=== PATIENT | female | born 1980 | race Hispanic/Latino ===

== ENCOUNTER 2017-07-26 05:42 | Day surgery (SDC) | payer MEDICAID ==
[~2017-07-26] VITALS: Ht 157.5 cm; Wt 65.7 kg
[~2017-07-26 05:42] MED LIST: ENAL5TAB PO; ERGO2000 PO; HYDR25TA PO
[2017-07-26 05:46] VITALS: BP 123/81
[2017-07-26] MEDS ORDERED: SODIUM CHLORIDE 0.9% 1000ML 1,000 ML IV ONE (06:03)
[2017-07-26 09:15] VITALS: BP 125/73
== END 2017-07-26 09:50 | disposition home or self-care (01) ==
LOC: ENDO 05:42 → DAH 05:42 → ENDO 09:50
PROVIDERS: ATTEND Internal Medicine
DX: K29.50 Unspecified chronic gastritis without bleeding (principal); L53.8 Other specified erythematous conditions; I10 Essential (primary) hypertension; Z85.3 Personal history of malignant neoplasm of breast; Z79.899 Other long term (current) drug therapy; E66.9 Obesity, unspecified; Z68.28 Body mass index [BMI] 28.0-28.9, adult
CPT/HCPCS: 36415; 43239; 84703; 88305; 88312; 88342; A4606; J7030

== ENCOUNTER 2017-09-08 18:45 | Emergency (ER) | payer MEDICAID | END 2017-09-08 19:23 | disposition home or self-care (01) | LOC: EDH 18:45 | DX: R21 Rash and other nonspecific skin eruption (principal); Z85.3 Personal history of malignant neoplasm of breast; Z85.05 Personal history of malignant neoplasm of liver; Z87.442 Personal history of urinary calculi; Z88.0 Allergy status to penicillin; Z98.890 Other specified postprocedural states | CPT/HCPCS: 99281 ==